=== PATIENT | male | born 1935 | race Caucasian/White ===

== ENCOUNTER 2018-01-09 16:22 | Emergency (ER) | payer MEDICARE ==
[2018-01-09 16:45] VITALS: BP 160/75
--- NOTE | 2018-01-09 16:57 | UC ---
Dental HPI - HPI Summary HPI Summary: 82 y/o male presents to the urgent care c/o RT lower jaw w/ a fracture and infected molar for the past 3 months. Pt reports he was seeing an Dentist at [facility], but Dentist is not longer there so he stopped going there. Pain has been on and off. Pain today is 5/10 specially w/ chewing. Pt has not taking anything to alleviate symptoms. He thinks he fractured the molar and now has swelling around there. Pt denies fever, COY, trismus, SOB, chest pain, abdominal pain, N/V/D. Pt states his past away about 2 weeks ago and he is going to [facility] this coming Thursday to live w/ his daughter. - History of Current Complaint Chief Complaint: UCDentalProblem Stated Complaint: TOOTHACHE Time Seen by Provider: 01/09/18 16:49 Hx Obtained From: Patient Onset/Duration: Gradual Onset, Lasting Weeks - 3 months on and off, Still Present, Worse Since - last week Severity: Moderate Pain Intensity: 5 Pain Scale Used: 0-10 Numeric Aggravating Factor(s): Chewing Alleviating Factor(s): Nothing - Allergies/Home Medications Allergies/Adverse Reactions: Allergies Allergy/AdvReac Type Severity Reaction Status Date / Time Penicillins Allergy Hives Verified 01/09/18 16:47 shellfish derived Allergy Swelling Verified 01/09/18 16:47 Of Face,Lips,& Throat Home Medications: Home Medications Allopurinol TAB* [Zyloprim 100 MG TAB*] 100 mg PO DAILY 01/09/18 [History Confirmed 01/09/18] Hydrochlorothiazide TAB* [Hydrodiuril TAB*] 25 mg PO DAILY 01/09/18 [History Confirmed 01/09/18] Losartan Potassium 100 mg PO DAILY 01/09/18 [History Confirmed 01/09/18] Metoprolol Tartrate TAB* [Lopressor TAB*] 50 mg PO TID 01/09/18 [History Confirmed 01/09/18] Potassium Chloride [Klor-Con M20] 40 meq PO DAILY 01/09/18 [History Confirmed ] Simvastatin [Zocor] 40 mg PO BEDTIME 01/09/18 [History Confirmed 01/09/18] Warfarin TAB(*) [Coumadin TAB(*)] 4 mg PO DAILY 01/09/18 [History Confirmed ] amLODIPine TAB* [Norvasc 5 mg TAB*] 5 mg PO DAILY 01/09/18 [History Confirmed ] PMH/Surg Hx/FS Hx/Imm Hx Previously Healthy: Yes Endocrine History: 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 Cardiovascular History: Hypertension, Myocardial Infarction - Surgical History Surgical History: Yes Surgery Procedure, Year, and Place: prostate 1992, heart cath - Family History Known Family History: Positive: Cardiac Disease - Social History Occupation: Retired Lives: With Family Alcohol Use: Daily Alcohol Amount: 3x/day Substance Use Type: None Smoking Status (MU): Never Smoked Tobacco Review of Systems Constitutional: Negative Skin: Negative Eyes: Negative ENT: Dental Pain - RT lower jaw w/ a fracture molar Respiratory: Negative Cardiovascular: Negative Gastrointestinal: Negative Genitourinary: Negative Motor: Negative Neurovascular: Negative Musculoskeletal: Negative Neurological: Negative Psychological: Negative Is Patient Immunocompromised?: No All Other Systems Reviewed And Are Negative: Yes Physical Exam - Summary Physical Exam Summary: Vital Signs Reviewed: Yes General: well developed. well nourished male sitting in the examining table w/o any apparent distress Eyes: Positive: Conjunctiva Clear - PERRLA, EOMI, fundi grossly normal ENT: Positive: Normal ENT inspection, Hearing grossly normal, Pharyngeal erythema, TMs normal, Uvula midline. Negative: Tonsillar swelling, Tonsillar exudate, Trismus Dental: Positive: Percussion Tenderness @ - molar 21, Gross Decay/Caries and fracture @ - molar 21, Abscess @ - molar 21, Cervical Lymphadenopathy - B/L anterior, Neck: Positive: Supple, Nontender Respiratory: Positive: Chest non-tender, Lungs clear, Normal breath sounds, No respiratory distress Cardiovascular: Positive: RRR, No Murmur, Pulses Normal, Brisk Capillary Refill Abdomen Description: Positive: Nontender, No Organomegaly, Soft. Negative: CVA Tenderness (R), CVA Tenderness (L) Bowel Sounds: Positive: Present Musculoskeletal: Positive: Strength Intact, ROM Intact, No Edema Neurological Exam: Normal Psychological Exam: Normal Skin Exam: Normal Triage Information Reviewed: Yes Vital Signs: Initial Vital Signs Temp 99.0 F 01/09/18 16:35 Pulse 90 01/09/18 16:35 Resp 14 01/09/18 16:35 BP 160/75 01/09/18 16:35 Pulse Ox 96 06/23/18 16:35 Dental Complaint Course/Dx - Course Course Of Treatment: 82 y/o male presents to the urgent care c/o RT lower jaw w / a fracture and infected molar for the past 3 months. Pt reports he was seeing an Dentist at [facility], but Dentist is not longer there so he stopped going there. Pain has been on and off. Pain today is 5/10 specially w / chewing. Pt has not taking anything to alleviate symptoms. He thinks he fractured the molar and now has swelling around there. Pt denies fever, COY, trismus, SOB, chest pain, abdominal pain, N/V/D. Pt states his past away about 2 weeks ago and he is going to [facility] this coming Thursday to live w/ his daughter. Hx obtained. Pt w/ a dental abscess and a fracture molar #31 w/ gross decay on examination. Pt given Loading dose of Clindamycin , Tyelnol PO and viscous Lidocaine at the clinic to alleviate symptoms. Pt Rx same medications. Pt strongly advised to f/u with Dentist as soon as he arrives to [facility] further evaluation and treatment. D/C instructions explained. Pt's BP is elevated today advised to decrease salt in diet, monitor BP and f/u with PCP for further management. Pt understood and agreed with plan of care. Left the clinic ambulating hemodynamically stable, A&OX3. - Differential Dx/Diagnosis Differential Diagnosis/Dx: Dental Abscess, Dental Caries, Fractured Tooth, Peridontic Disease Provider Diagnoses: 1- Dental abscess w/ a fracture at molar #31. 2- Uncontrolled HTN Discharge - Sign-Out/Discharge Documenting (check all that apply): Discharge/Admit/Transfer - D/C home - Discharge Plan Condition: Stable Disposition: HOME Prescriptions: Acetaminophen TAB* [Tylenol TAB*] 650 mg PO Q6H PRN #30 tab PRN Reason: dental pain Clindamycin Cap(NF) [Clindamycin Cap 300 mg Cap(NF)] 300 mg PO TID #28 cap Patient Education Materials: Dental Abscess (ED), Low-Sodium Diet (ED) Referrals: Refugio Mcdowell MD [Primary Care Provider] - 2 Days Additional Instructions: 1-Please take full course of antibiotic to avoid resistance. Apply viscous Lidocaine as directed to alleviate pain. Please take Probiotics, Culturelle to protect your GI system. 2- Take Tylenol PO as instructed after meals to alleviate pain and swelling. 3- F/u with your Dentist or Dentist as soon as you get to [facility] for further treatment. 4- If symptoms do not improve or worsen please return to the urgent care or f/u with your PCP for further evaluation and treatment 5-Your BP is elevated today. please decrease salt in your diet, monitor BP and if it continues to be elevated please f/u with your PCP for further management - Billing Disposition and Condition Condition: STABLE Disposition: Home
[2018-01-09] MEDS ORDERED: Clindamycin CAP* 150 MG PO ONE (17:12)
[2018-01-09] MEDS ORDERED: Lidocaine 2% VISCOUS* 15 ML UDC SWISH SPIT ONE (17:13)
[2018-01-09] MEDS ORDERED: Acetaminophen TAB* 325 MG PO ONE (17:14)
== END 2018-01-09 17:50 | disposition home or self-care (01) ==
LOC: UCEAST 16:22
DX: K04.7 Periapical abscess without sinus (principal); K03.81 Cracked tooth; K02.9 Dental caries, unspecified; I10 Essential (primary) hypertension; E11.9 Type 2 diabetes mellitus without complications; M10.9 Gout, unspecified; I25.2 Old myocardial infarction; Z88.0 Allergy status to penicillin; Z91.013 Allergy to seafood; Z82.49 Family history of ischemic heart disease and other diseases of the circulatory system
CPT/HCPCS: 99212; A9270-GY; G0463